=== PATIENT | male | born 1990 | race Caucasian/White ===

== ENCOUNTER 2024-03-30 08:05 | Outpatient (CLI) | payer BC ==
[2024-03-30] MEDS ORDERED: Iopamidol 300 61% 100 ML VIAL FS ONE (10:01)
== END 2024-03-30 08:06 | disposition home or self-care (01) ==
LOC: CSHCT 08:05
PROVIDERS: ATTEND Family Medicine
DX: R10.31 Right lower quadrant pain (principal); D73.9 Disease of spleen, unspecified
CPT/HCPCS: 74177; Q9967

== ENCOUNTER 2024-06-02 11:03 | Outpatient (CLI) | payer BC | END 2024-06-02 11:04 | disposition home or self-care (01) | LOC: CSHMRI 11:03 | PROVIDERS: ATTEND Family Medicine | DX: M54.31 Sciatica, right side (principal); Z98.890 Other specified postprocedural states; M43.07 Spondylolysis, lumbosacral region; M51.379 Other intervertebral disc degeneration, lumbosacral region without mention of lumbar back pain or lower extremity pain | CPT/HCPCS: 72148 ==